=== PATIENT | male | born 1970 ===

== ENCOUNTER 2017-02-21 04:51 | Emergency (ER) | payer SELFPAY ==
[2017-02-21 04:56] VITALS: BP 149/87; PULSE 80; RESP 20; TEMP 98; O2SAT 97
--- NOTE | 2017-02-21 05:18 | C.PDOC ---
History Of Present Illness 46 year old male presents to the ER with a complaint of left hand pain. Patient states she got his hand caught between the door and door frame at 20:00. He is able to move the hand but movement causes pain and he notes he did not take anything for the pain. Denies weakness or numbness. Time Seen by Provider: 02/21/17 05:00 Chief Complaint (Nursing): Finger,Hand,&Wrist History Per: Patient History/Exam Limitations: no limitations Onset/Duration Of Symptoms: Hrs Current Symptoms Are (Timing): Still Present Exacerbating Factor(s): Movement Recent travel outside of the [place] States: No Past Medical History Reviewed: Historical Data, Nursing Documentation, Vital Signs Vital Signs: Last Vital Signs Temp 98.0 F 02/21/17 04:55 Pulse 80 02/21/17 04:55 Resp 20 02/21/17 04:55 BP 149/87 02/21/17 04:55 Pulse Ox 97 02/21/17 06:09 - Medical History PMH: No Chronic Diseases Family History: States: Unknown Family Hx - Social History Hx Alcohol Use: No Hx Substance Use: No - Immunization History Hx Tetanus Toxoid Vaccination: No Hx Influenza Vaccination: No Hx Pneumococcal Vaccination: No Review Of Systems Musculoskeletal: Positive for: Hand Pain Neurological: Negative for: Weakness, Numbness Physical Exam - Physical Exam Appears: Non-toxic, No Acute Distress Skin: Normal Color, Warm, Dry Head: Atraumatic, Normacephalic Eye(s): bilateral: Normal Inspection Oral Mucosa: Moist Extremity: Normal ROM, Capillary Refill (<2 seconds), No Deformity, Other ( Tenderness with mild swelling and small area of ecchymosis to left palmar base near thenar eminence) Pulses: Left Radial: Normal, Right Radial: Normal Neurological/Psych: Oriented x3, Normal Speech, Normal Motor, Normal Sensation, Other (No focal deficits) ED Course And Treatment O2 Sat by Pulse Oximetry: 97 (Room air) Pulse Ox Interpretation: Normal Medical Decision Making Medical Decision Making: Plan: * Motrin * Left hand x-ray XRays shows no acute fracture or dislocation. Patient re-evaluated and reports pain is improving. Advise ice and NSAIDs for pain and swelling. Recommend follow up in 7 days for repeat xray or ortho consult if pain persists Disposition Counseled Patient/Family Regarding: Need For Followup, Rx Given - Disposition Referrals: [facility] [Outside] [facility] [Outside] Disposition: HOME/ ROUTINE Disposition Time: 06:04 Condition: GOOD Additional Instructions: xray no muestra fractura. puede aplicar hielo 15-20 minutos 2-3 veces por da. [place] Motrin segn sea necesario para el dolor cada 6 horas. John con comida para no molestar el estmago Prescriptions: Ibuprofen [Motrin] 600 mg PO Q8 #30 tab Instructions: Contusion in Adults (DC) Forms: [employer] (Pashto), Work Excuse Print Language: TURKISH - POA Present On Arrival: None - Clinical Impression Clinical Impression: Hand contusion - PA / [employer] / Resident Statement MD/DO has reviewed & agrees with the documentation as recorded. - Scribe Statement The provider has reviewed the documentation as recorded by the Scribe Marcelo Valera All medical record entries made by the Scribe were at my direction and personally dictated by me. I have reviewed the chart and agree that the record accurately reflects my personal performance of the history, physical exam, medical decision making, and the department course for this patient. I have also personally directed, reviewed, and agree with the discharge instructions and disposition.
--- NOTE | 2017-02-21 08:54 | RAD ---
PROCEDURE: Left Hand Radiographs. HISTORY: pain to left hand near thumb COMPARISON: None. FINDINGS: BONES: Normal. No fracture. JOINTS: Normal. No osteoarthritic changes. SOFT TISSUES: Normal. OTHER FINDINGS: None. IMPRESSION: Normal left hand radiographs.
== END 2017-02-21 06:15 | disposition home or self-care (01) ==
LOC: C.ER 04:51
DX: S60.222A Contusion of left hand, initial encounter (principal); W23.0XXA Caught, crushed, jammed, or pinched between moving objects, initial encounter